=== PATIENT | female | born 1965 | race Two or more races ===

== ENCOUNTER 2019-04-30 01:56 | Emergency (ER) | payer SELFPAY ==
[~2019-04-30] VITALS: Ht 152.4 cm; Wt 86.2 kg
[2019-04-30 02:10] VITALS: BP 118/56
--- NOTE | 2019-04-30 02:11 | NUR ---
ED Nurse Note: pt walked in c/o left earache for four days, pt reports hearing difficulties and a lot of noises. denies discharge. will cont monitor. pt reports lump on her head for 8 months but denies headache. will cont monitor.
[2019-04-30] MEDS ORDERED: AUGMENTIN 875-1 EAC1 ORAL (02:30)
[2019-04-30] MEDS ORDERED: IBUPROFEN600 MG ORAL (02:30)
--- NOTE | 2019-04-30 02:30 | Emergency Room Report ---
History of Present Illness General Chief Complaint: Earache Source: Patient Present Illness [facility] This is a 53-year-old female with no past medical history. She presents with chief complaint of left ear pain. Onset for couple days. No fever chills. [place] fluid behind her ear. [place] dullness. Decreased hearing. No nausea no vomiting. Slight cough and congestion. Allergies: Coded Allergies: No Known Allergies (Unverified , 04/30/19) Patient History Past Medical History: see triage record, old chart reviewed Past Surgical History: none Pertinent Family History: none Social History: Denies: smoking Now: No Immunizations: other Reviewed Nursing Documentation: PMH: Agreed; PSxH: Agreed Nursing Documentation-PMH Past Medical History: No Stated History Review of Systems Eye: Denies: eye pain, blurred vision ENT: Reports: ear pain; Denies: nose congestion, throat swelling Respiratory: Denies: cough, shortness of breath Cardiovascular: Denies: chest pain, palpitations Gastrointestinal: Denies: abdominal pain, diarrhea, nausea, vomiting Musculoskeletal: Denies: back pain, joint pain Skin: Denies: rash Neurological: Denies: headache, numbness Endocrine: Denies: increased thirst, increased urine Hematologic/Lymphatic: Denies: easy bruising All Other Systems: negative except mentioned in HPI Physical Exam Vital Signs Date Time Temp Pulse Resp B/P (MAP) Pulse Ox O2 Delivery O2 Flow Rate FiO2 04/30/19 02:04 98.2 74 18 118/56 (76) 98 Room Air Vitals normal Sp02 EP Interpretation: reviewed, normal General Appearance: well appearing, no apparent distress, alert Head: normocephalic, atraumatic Eyes: bilateral eye PERRL, bilateral eye EOMI ENT: hearing grossly normal, normal pharynx, other - Left ear with wax hearing to canal. Right TM with effusion. Neck: full range of motion, supple, no meningismus Respiratory: chest non-tender, lungs clear, normal breath sounds Cardiovascular #1: regular rate, rhythm, no murmur Gastrointestinal: normal bowel sounds, non tender, no mass, no organomegaly, no bruit, non-distended Musculoskeletal: back normal, gait/station normal, normal range of motion Psychiatric: mood/affect normal Procedures Additional Procedure Procedure Narrative Procedure: Cerumen disimpaction Indication: Cerumen impaction Description: I irrigated the left ear canal with normal saline. Large wax disimpacted. Patient tolerated procedure without any complication. No trauma. TM show erythema. Medical Decision Making Diagnostic Impression: Primary Impression: Left otitis media with effusion Additional Impression: Impacted cerumen of left ear ER Course Presents with otitis media and cerumen impaction. No perforation. Will discharge home. Last Vital Signs Date Time Temp Pulse Resp B/P (MAP) Pulse Ox O2 Delivery O2 Flow Rate FiO2 04/30/19 02:10 98.2 74 18 118/56 98 Room Air Status: improved Disposition: HOME, SELF-CARE Condition: Stable Scripts Ibuprofen* (MOTRIN*) 600 Mg Tablet 600 MG ORAL THREE TIMES A DAY, #30 TAB 0 Refills Prov: Efrain Smallwood MD 04/30/19 Amoxicillin/Potassium Clav 875-125* (AUGMENTIN 875-125 TABLET*) 1 Each Tablet 1 TAB ORAL TWICE A DAY, #14 TAB Prov: Efrani Smallwood MD 04/30/19 Patient Instructions: Otitis Media, Adult, [id number] Additional Instructions: Follow-up with your doctor in 7 days. Return if symptoms worsen. Efrain Smallwood MD Apr 30, 2019 02:30
[2019-04-30 02:34] VITALS: BP 115/60
--- NOTE | 2019-04-30 02:34 | NUR ---
ED Nurse Note: PT CLEARED TO BE D/C PER ERMD, EAR IRRIGATION DONE BY ERMD, PT DISCHARGE AND AFTERCARE INSTRUCTION PROVIDED W/ PRESCRIPTION, PT EDUCATION DONE VIA DISCUSSION AND HANDOUT, PT ADVISED TO FOLLOW UP WITH PCP OR RETURN TO ED IF CHANGES IN CONDITION, VSS, AMBULATORY W/ STEADY GAIT, LEFT W/ ALL BELONGINGS, ACCOMPANIED BY DAUGHTER
== END 2019-04-30 02:34 | disposition home or self-care (01) ==
LOC: EMR 02:18
DX: H66.92 Otitis media, unspecified, left ear (principal); H61.22 Impacted cerumen, left ear
CPT/HCPCS: 99282